=== PATIENT | male | born 1965 | race Hispanic/Latino ===

== ENCOUNTER 2017-05-15 14:55 | Emergency (ER) | payer BC ==
[2017-05-15 16:14] LABS: APPEARANCE,URINE Cloudy (CLEAR); BILIRUBIN,URINE Negative (NEGATIVE); COLOR,URINE Yellow (YELLOW); GLUCOSE, URINE (UA) Negative (NEGATIVE); KETONES,URINE Negative (NEGATIVE); LEUKOCYTE ESTERASE ,URINE Negative (NEGATIVE); NITRATE,URINE Negative (NEGATIVE); OCCULT BLOOD,URINE Moderate (NEGATIVE); PROTEIN,URINE Negative (NEGATIVE); UROBILINOGEN,URINE 0.2 mg/dL (0.2-1.0)
[2017-05-15] MEDS ORDERED: KETOROLAC TROMETHAMINE 30MG/ML ONE (16:38)
[2017-05-15 16:52] LABS: BACTERIA,URINE None Seen /HPF (None Seen); SQUAMOUS EPITHELIAL CELL,UR 0-2 /HPF (0-2); WBC,URINE 0-1 /HPF (0-1)
== END 2017-05-15 17:08 | disposition home or self-care (01) ==
LOC: EDH 14:55
DX: R33.9 Retention of urine, unspecified (principal); Z88.5 Allergy status to narcotic agent
CPT/HCPCS: 51702; 81001; 99284; J1885

== ENCOUNTER 2017-05-22 19:40 | Emergency (ER) | payer BC | END 2017-05-22 20:47 | disposition home or self-care (01) | LOC: EDH 19:40 | DX: R22.42 Localized swelling, mass and lump, left lower limb (principal); Z88.5 Allergy status to narcotic agent | CPT/HCPCS: 93970 ==

== ENCOUNTER → 2020-10-19 | Outpatient (CLI) | payer OTHER | END | disposition home or self-care (01) | LOC: OIH 14:58 | PROVIDERS: ATTEND Internal Medicine Nephrology | DX: Z13.6 Encounter for screening for cardiovascular disorders (principal) | CPT/HCPCS: 75571 ==